=== PATIENT | female | born 1990 | race African-American/Black ===

== ENCOUNTER 2016-11-11 13:47 | Emergency (ER) | payer OTHER | END 2016-11-11 16:53 | disposition left against medical advice (07) | LOC: ER 14:15 | DX: M79.644 Pain in right finger(s) (principal); Z53.21 Procedure and treatment not carried out due to patient leaving prior to being seen by health care provider ==

== ENCOUNTER 2017-03-19 08:36 | Emergency (ER) | payer OTHER ==
[~2017-03-19] VITALS: Ht 149.9 cm; Wt 88.0 kg
[2017-03-19 08:45] VITALS: BP 112/79
== END 2017-03-19 14:49 | disposition home or self-care (01) ==
LOC: ER 14:45
DX: B86 Scabies (principal)
CPT/HCPCS: 99282

== ENCOUNTER 2017-04-16 18:50 | Emergency (ER) | payer OTHER ==
[~2017-04-16] VITALS: Ht 149.9 cm; Wt 87.1 kg
[2017-04-16 18:52] VITALS: BP 124/87
== END 2017-04-16 19:45 | disposition left against medical advice (07) ==
LOC: ER 19:37
DX: R51 Headache (principal); R11.0 Nausea; Z53.21 Procedure and treatment not carried out due to patient leaving prior to being seen by health care provider

== ENCOUNTER 2018-03-17 08:20 | Emergency (ER) | payer OTHER ==
[~2018-03-17] VITALS: Ht 149.9 cm; Wt 82.0 kg
[2018-03-17] MEDS ORDERED: IBUPROFEN 600MG TABLET PO ONE (08:45)
[2018-03-17] MEDS ORDERED: PREDNISONE 20MG TABLET PO ONE (08:45)
[2018-03-17 09:28] VITALS: BP 108/70
== END 2018-03-17 11:08 | disposition home or self-care (01) ==
LOC: ER 09:35
DX: J02.9 Acute pharyngitis, unspecified (principal); R13.10 Dysphagia, unspecified; Z98.890 Other specified postprocedural states
CPT/HCPCS: 87070; 87430; 99283; J7512

== ENCOUNTER 2019-12-23 08:08 | Emergency (ER) | payer OTHER ==
[~2019-12-23] VITALS: Ht 149.9 cm; Wt 62.0 kg
[2019-12-23] MEDS ORDERED: IBUPROFEN 600MG TABLET PO ONE (09:00)
[2019-12-23] MEDS ORDERED: TETANUS, DIPHTHERIA, PERTUSSIS VAC/PF 0.5ML (>7YR OLD) IM ONE (09:00)
[2019-12-23 09:20] LABS: CLARITY URINE CLEAR (CLEAR); COLOR URINE YELLOW (YELLOW); KETONES URINE NEGATIVE (NEGATIVE); LEUKOCYTE ESTERASE URINE 2+ (NEGATIVE); NITRITE URINE NEGATIVE (NEGATIVE); OCCULT BLOOD URINE NEGATIVE (NEGATIVE); PROTEIN URINE NEGATIVE (NEGATIVE); SPECIFIC GRAVITY URINE 1.019 (1.005-1.030); UROBILINOGEN URINE 0.2 E.U./dL (0.2-1.0)
[2019-12-23 10:08] VITALS: BP 105/68
[2019-12-25 05:12] LABS: NEISSERIA GONORRHOEAE NAA Negative (Negative)
== END 2019-12-23 10:10 | disposition home or self-care (01) ==
LOC: ER 09:22
DX: L03.011 Cellulitis of right finger (principal); N39.0 Urinary tract infection, site not specified; Z11.3 Encounter for screening for infections with a predominantly sexual mode of transmission; Z23 Encounter for immunization
CPT/HCPCS: 81003; 81025; 87210; 87491; 87591; 90471; 90715; 99283

== ENCOUNTER 2021-01-03 09:13 | Emergency (ER) | payer OTHER ==
[~2021-01-03] VITALS: Ht 149.9 cm; Wt 59.0 kg
[2021-01-03 09:15] VITALS: BP 124/88
[2021-01-03] MEDS ORDERED: IBUPROFEN 400MG TABLET PO ONE (10:00)
[2021-01-03] MEDS ORDERED: PSEU120T56 MT (10:11)
[2021-01-03] MEDS ORDERED: ACETAMINOPHEN 325MG TABLET PO ONE (13:00)
== END 2021-01-03 13:44 | disposition home or self-care (01) ==
LOC: ER 09:13
DX: J06.9 Acute upper respiratory infection, unspecified (principal); R03.0 Elevated blood-pressure reading, without diagnosis of hypertension; Z20.822 Contact with and (suspected) exposure to COVID-19; Z59.0 Homelessness
CPT/HCPCS: 87426; 99283; Z7610

== ENCOUNTER 2021-03-20 08:20 | Emergency (ER) | payer OTHER ==
[~2021-03-20] VITALS: Ht 149.9 cm; Wt 60.0 kg
[~2021-03-20 08:20] MED LIST: PSEU120T56 MT
[2021-03-20 08:24] VITALS: BP 119/82
== END 2021-03-20 08:54 | disposition home or self-care (01) ==
LOC: ER 08:20
DX: U07.1 COVID-19 (principal); Z98.890 Other specified postprocedural states
CPT/HCPCS: 99283; C9803; U0003; U0005

== ENCOUNTER 2021-05-22 07:08 | Emergency (ER) | payer OTHER ==
[~2021-05-22] VITALS: Ht 149.9 cm; Wt 64.0 kg
[2021-05-22 07:31] VITALS: BP 119/74
[2021-05-22 08:44] LABS: CLARITY URINE CLEAR (CLEAR); COLOR URINE YELLOW (YELLOW); KETONES URINE NEGATIVE (NEGATIVE); LEUKOCYTE ESTERASE URINE 1+ (NEGATIVE); NITRITE URINE NEGATIVE (NEGATIVE); OCCULT BLOOD URINE NEGATIVE (NEGATIVE); PH URINE 5.5 (4.5-8.0); PROTEIN URINE NEGATIVE (NEGATIVE); UROBILINOGEN URINE 0.2 E.U./dL (0.2-1.0)
[2021-05-22] MEDS ORDERED: ACETAMINOPHEN 500MG TABLET PO ONE (08:45)
[2021-05-22] MEDS ORDERED: PENI500T MT (09:38)
[2021-05-22] MEDS ORDERED: IBUP-2029 MT (09:38)
== END 2021-05-22 09:55 | disposition home or self-care (01) ==
LOC: ER 07:08
DX: J02.0 Streptococcal pharyngitis (principal); Z98.890 Other specified postprocedural states
CPT/HCPCS: 81003; 81025; 87430; 99283

== ENCOUNTER 2021-06-30 17:51 | Emergency (ER) | payer OTHER ==
[~2021-06-30] VITALS: Ht 160 cm; Wt 68.0 kg
[~2021-06-30 17:51] MED LIST changes: +IBUP-2029 MT; +PENI500T MT
[2021-06-30] MEDS ORDERED: HYDROCODONE/ACETAMINOPHEN 5/325MG TABLET PO ONE (18:15)
[2021-06-30] MEDS ORDERED: IBUP-2029 MT (19:18)
[2021-06-30 19:41] VITALS: BP 123/81
== END 2021-06-30 20:00 | disposition home or self-care (01) ==
LOC: ER 18:02
DX: S60.031A Contusion of right middle finger without damage to nail, initial encounter (principal); W22.8XXA Striking against or struck by other objects, initial encounter; Y93.89 Activity, other specified; Y92.89 Other specified places as the place of occurrence of the external cause; Y99.8 Other external cause status
CPT/HCPCS: 29130; 73140; 99283

== ENCOUNTER 2021-09-13 02:58 | Emergency (ER) | payer OTHER ==
[~2021-09-13] VITALS: Ht 149.9 cm; Wt 78.0 kg
[2021-09-13] MEDS ORDERED: IBUPROFEN 600MG TABLET PO STA (03:53)
[2021-09-13] MEDS ORDERED: NAPR-681 PO (05:38)
[2021-09-13 05:53] VITALS: BP 130/80
== END 2021-09-13 05:53 | disposition home or self-care (01) ==
LOC: ER 02:58
DX: J06.9 Acute upper respiratory infection, unspecified (principal); L29.9 Pruritus, unspecified; R03.0 Elevated blood-pressure reading, without diagnosis of hypertension; Z88.0 Allergy status to penicillin
CPT/HCPCS: 81025; 87070; 87430; 99283

== ENCOUNTER 2022-02-26 20:39 | Emergency (ER) | payer OTHER ==
[~2022-02-26] VITALS: Ht 162.6 cm; Wt 91.0 kg
[~2022-02-26 20:39] MED LIST changes: +NAPR-681 PO
[2022-02-27] MEDS ORDERED: PROCHLORPERAZINE 10MG/2ML VIAL IV PRN (00:15)
[2022-02-27] MEDS ORDERED: DIPHENHYDRAMINE 50MG/ML VIAL IV ONE (00:15)
[2022-02-27] MEDS ORDERED: SODIUM CHLORIDE 0.9% 1,000 ML IV ONE (00:15)
[2022-02-27 00:36] LABS: BASOPHILS % 0.7 % (0.0-2.0); EOSINOPHILS % 0.3 % (0.0-5.0); HEMATOCRIT. 37.4 % (36.0-48.0); LYMPHOCYTES % 30.3 % (20.0-50.0); MEAN CORPUSCULAR HEMOGLOBIN 26.6 pg (28.0-32.0); MEAN CORPUSCULAR VOLUME 82.4 fL (81.0-99.0); MEAN PLATELET VOLUME 7.6 fl (7.4-10.4); NEUTROPHILS % 58.7 % (40.0-76.0); PLATELET 282 x1000/uL (130-400); RED BLOOD CELL COUNT 4.54 mill/uL (4.2-5.4); RED CELL DISTRIBUTION WIDTH 14.3 % (11.6-14.6)
[2022-02-27 00:43] LABS: CHLORIDE 108 mEq/L (98-107)
[2022-02-27 00:45] LABS: HCG SCREEN NEGATIVE
[2022-02-27 01:35] VITALS: BP 121/79
== END 2022-02-27 03:02 | disposition home or self-care (01) ==
LOC: ER 20:39
DX: R51.9 Headache, unspecified (principal); Z88.0 Allergy status to penicillin
CPT/HCPCS: 36415; 80053; 84703; 85025; 96374; 96375; 99284; J1200; J7030

== ENCOUNTER 2023-08-31 23:48 | Emergency (ER) | payer MEDICAID, OTHER ==
[~2023-08-31] VITALS: Ht 149.9 cm; Wt 67.0 kg
[2023-09-01 00:06] VITALS: BP 144/74; PULSE 61; RESP 14; TEMP 98.5; O2SAT 100
[2023-09-01] MEDS: ACETAMINOPHEN 325MG TABLET PO STA (03:28)
[2023-09-01 03:38] LABS: BASOPHILS % 0.8 % (0.0-2.0); EOSINOPHILS % 0.5 % (0.0-5.0); HEMATOCRIT. 39.1 % (36.0-48.0); HEMOGLOBIN. 12.9 g/dL (12.0-16.0); LYMPHOCYTES % 40.7 % (20.0-50.0); MEAN CORPUSCULAR HGB CONC 33.1 g/dL (31.0-37.0); MEAN CORPUSCULAR VOLUME 81.6 fL (81.0-99.0); MEAN PLATELET VOLUME 7.7 fl (7.4-10.4); MONOCYTES % 8.3 % (2.0-8.0); NEUTROPHILS % 49.7 % (40.0-76.0); PLATELET 313 x1000/uL (130-400); RED BLOOD CELL COUNT 4.79 mill/uL (4.2-5.4); RED CELL DISTRIBUTION WIDTH 13.9 % (11.6-14.6); WHITE BLOOD COUNT 7.9 x1000/uL (4.5-11.0)
[2023-09-01 03:43] LABS: ALANINE AMINOTRANSFERASE 19 IU/L (10-49); ALBUMIN 4.5 g/dL (3.2-4.8); ASPARTATE AMINOTRANSFERASE 36 IU/L (<34); BILIRUBIN TOTAL 0.6 mg/dL (0.1-1.0); CALCIUM 9.5 mg/dL (8.7-10.4); CARBON DIOXIDE 27 mEq/L (21-32); CHLORIDE 104 mEq/L (98-107); CREATININE 0.6 mg/dL (0.6-1.0); GLUCOSE 95 mg/dL (70-105); POTASSIUM 3.8 mEq/L (3.5-5.1); PROTEIN TOTAL 7.1 g/dL (6.0-8.3); SODIUM 138 mEq/L (136-145); UREA NITROGEN BLOOD 12 mg/dL (9-23)
[2023-09-01 04:00] LABS: TROPONIN I HIGH SENSITIVITY < 4 ng/L (3.0-34)
[2023-09-01 04:27] LABS: HCG SCREEN NEGATIVE
== END 2023-09-01 04:40 | disposition left against medical advice (07) ==
LOC: ER 23:48
DX: R10.9 Unspecified abdominal pain (principal); R07.9 Chest pain, unspecified; Z98.890 Other specified postprocedural states
CPT/HCPCS: 36415; 71045; 80053; 81025; 84484; 84703; 85025; 85379; 93005; 99285